=== PATIENT | male | born 1990 | race Caucasian/White ===

== ENCOUNTER 2022-09-01 11:01 | Emergency (ER) | payer MEDICAID ==
[~2022-09-01] VITALS: Ht 167.6 cm; Wt 68.0 kg
[2022-09-01] MEDS ORDERED: dexamethasone sod phosphate 10mg/ml inj PO STA (11:49)
[2022-09-01] MEDS ORDERED: ipratropium/albuterol 3ml nebule NEB ONE (11:50)
[2022-09-01 12:46] VITALS: BP 145/88
== END 2022-09-01 12:48 | disposition home or self-care (01) ==
LOC: ER 11:01
DX: R06.02 Shortness of breath (principal); R06.2 Wheezing; F12.90 Cannabis use, unspecified, uncomplicated; Z79.899 Other long term (current) drug therapy
CPT/HCPCS: 71045; 94640; 99283; J1100; 94760